=== PATIENT | male | born 1995 | race Caucasian/White ===

== ENCOUNTER 2016-03-24 20:28 | Emergency (ER) | payer OTHER ==
[~2016-03-24] VITALS: Ht 185.4 cm; Wt 68.5 kg
[~2016-03-24 20:28] MED LIST: AMOXICILLIN500 M1 PO; BENTYL20 MG PO; COLACE100 MG PO; ERGOCALCIF50000 UNIT PO; INTUNIV1 MG PO; MIRALAX17 GM PO; MOBIC7.5 MG PO; PRILOSEC40 MG PO; PROMETHAZINE HC25 M1 PO; PROZAC20 MG PO; RISPERDAL4 MG PO; STRATTERA60 MG PO; ULTRAM50 MG PO; VYVANSE30 MG PO; ZOFRAN4 MG PO
[2016-03-24 20:32] VITALS: BP 154/66
== END 2016-03-25 00:46 | disposition home or self-care (01) ==
LOC: EME 20:28 → EXP 20:28
PROC: 3E0234Z Introduction of Serum, Toxoid and Vaccine into Muscle, Percutaneous Approach (ICD-10-PCS; principal; 2016-03-24)
DX: S01.511A Laceration without foreign body of lip, initial encounter (principal); W26.0XXA Contact with knife, initial encounter; Z23 Encounter for immunization
CPT/HCPCS: 99281; 99284

== ENCOUNTER 2017-07-27 18:57 | Emergency (ER) | payer OTHER ==
[~2017-07-27] VITALS: Ht 190.5 cm; Wt 64.0 kg
[2017-07-27 19:16] LABS: HEMOGLOBIN 15.4 G/DL (12.5-16.6); MCH 31.2 PG (29.0-34.0); MCV 89.1 FL (86-99); RBC DIS.WIDTH-CV 11.9 % (11.8-14.6); RBC DIS.WIDTH-SD 38.5 % (39-53); RED BLOOD COUNT 4.94 M/uL (4.00-5.50); WHITE BLOOD COUNT 6.3 K/uL (4.1-10.2)
[2017-07-27 19:26] LABS: ALBUMIN 4.8 g/dL (3.2-4.8)
[2017-07-27 19:27] LABS: CHLORIDE 105 mEq/L (99-109); POTASSIUM 3.5 mEq/L (3.7-5.4); SODIUM 142 mEq/L (136-147)
[2017-07-27 19:29] LABS: GLUCOSE 118 mg/dL (70-99); TOTAL PROTEIN 7.5 g/dL (6.4-8.3)
[2017-07-27 19:31] LABS: TOTAL BILIRUBIN 0.5 mg/dL (0.0-1.0)
[2017-07-27 19:32] LABS: ALKALINE PHOSPHATASE 74 IU/L (3-129)
[2017-07-27 19:33] LABS: GFR ESTIMATE (CALCULATED) > 59 mL/min/ (58.99-99999)
[2017-07-27 19:34] LABS: AST (GOT) 19 IU/L (2-34); UREA NITROGEN (BUN) 11 mg/dL (9-23)
[2017-07-27 19:35] LABS: ALT (GPT) 16 IU/L (3-49)
[2017-07-27 20:20] LABS: APPEARANCE CLEAR ((CLEAR)); BILIRUBIN NEGATIVE; BLOOD NEGATIVE; COLOR YELLOW ((YELLOW)); GLUCOSE (STRIP) NEGATIVE; KETONES NEGATIVE; LEUKOCYTES NEGATIVE; NITRITE NEGATIVE; PROTEIN (STRIP) NEGATIVE; SPECIFIC GRAVITY 1.012 (1.000-1.030); UCUL ADDED? NO; UROBILINOGEN 0.2 MG/DL (0.2-1.0)
[2017-07-27 20:45] LABS: LIPASE 19 U/L (1.0-51.0)
[2017-07-27 21:42] LABS: PLATELET COUNT 157 K/uL (156-360)
[2017-07-27 23:09] VITALS: BP 136/73
== END 2017-07-27 23:09 | disposition home or self-care (01) ==
LOC: EME 18:57
DX: L25.9 Unspecified contact dermatitis, unspecified cause (principal); R10.9 Unspecified abdominal pain; F84.0 Autistic disorder; F41.9 Anxiety disorder, unspecified; Z88.1 Allergy status to other antibiotic agents
CPT/HCPCS: 74177; 80053; 81003; 83690; 85027; 99281; 99285; J7030